=== PATIENT | male | born 2000 | race African-American/Black ===

== ENCOUNTER 2021-07-13 21:03 | Emergency (ER) | payer SELFPAY ==
--- NOTE | 2021-07-13 21:36 | EDM.PDOC ---
<Dionna Palencia R - Last Filed: 07/13/21 22:00> ED HPI GENERAL MEDICAL PROBLEM - General Chief Complaint: Chest Pain Stated Complaint: CHEST PAIN, SOB Time Seen by Provider: 07/13/21 21:15 Source of Information: Reports: Patient History Limitations: Reports: No Limitations - History of Present Illness INITIAL COMMENTS - FREE TEXT/NARRATIVE: Presents to the emergency room with a complaint of "coughing up blood". As I made inquiry, the patient stated he has had all kinds of symptoms for the last 2 weeks including chest pain, shortness of breath, coffee ground emesis x4, liquid stools today, shakiness. He also adds that he had no intention of coming in today but "my dad made me come in". He states he is otherwise healthy and has no chronic medical problems. He vapes nicotine and dips tobacco. No fevers, dysuria. Left Chest Pain Score (Numeric/FACES): 4 - Related Data Allergies Allergy/AdvReac Type Severity Reaction Status Date / Time No Known Allergies Allergy Verified 07/13/21 21:13 Home Meds: Home Meds . [No Known Home Meds] 07/13/21 [History] Past Medical History - Past Health History Medical/Surgical History: Denies Medical/Surgical History Social & Family History - Recreational Drug Use Recreational Drug Use: No ED ROS GENERAL - Review of Systems Review Of Systems: Comprehensive ROS is negative, except as noted in HPI. ED EXAM, GENERAL - Physical Exam Exam: See Below Exam Limited By: No Limitations General Appearance: Alert, No Apparent Distress, Other (visiting and joking) Ears: Normal External Exam Nose: Normal Inspection Throat/Mouth: Normal Inspection Head: Atraumatic, Normocephalic Neck: Normal Inspection Respiratory/Chest: No Respiratory Distress, Lungs Clear, Normal Breath Sounds Cardiovascular: Normal Peripheral Pulses, Regular Rate, Rhythm, No Edema, No Murmur GI/Abdominal: Normal Bowel Sounds, Soft, Tender (two spots only--one on the RUQ and LUQ are tender) Back Exam: Normal Inspection Extremities: Normal Inspection Neurological: Alert, Oriented Psychiatric: Normal Affect, Normal Mood Skin Exam: Warm, Dry, Intact, Normal Color, No Rash Lymphatic: No Adenopathy Course - Vital Signs Text/Narrative:: Case handed off to Dr. Ashley. Departure - Departure Disposition: Home, Self-Care 01 Clinical Impression: Hemoptysis, Nonspecific chest pain Instructions: Nonspecific Chest Pain, Adult, Hemoptysis Referrals: PCP,None [Primary Care Provider] - Forms: ED Department Discharge Additional Instructions: Your seen and evaluated in the ER today secondary to episodes of coughing up blood and chest pain. Your work-up in the emergency department was completely normal including normal labs, EKG, Covid and influenza tests. Your chest x-ray was also normal. Please make an appointment see your family doctor this week for reevaluation. The following information is given to patients seen in the emergency department who are being discharged to home. This information is to outline your options for follow-up care. We provide all patients seen in our emergency department with a follow-up referral. The need for follow-up, as well as the timing and circumstances, are variable depending upon the specifics of your emergency department visit. If you don't have a primary care physician on staff, we will provide you with a referral. We always advise you to contact your personal physician following an emergency department visit to inform them of the circumstance of the visit and for follow-up with them and/or the need for any referrals to a consulting specialist. The emergency department will also refer you to a specialist when appropriate. This referral assures that you have the opportunity for follow-up care with a specialist. All of these measure are taken in an effort to provide you with optimal care, which includes your follow-up. Under all circumstances we always encourage you to contact your private physician who remains a resource for coordinating your care. When calling for follow-up care, please make the office aware that this follow-up is from your recent emergency room visit. If for any reason you are refused follow-up, please contact the [facility] Department at and asked to speak to the emergency department charge nurse. [facility] [address] [place] [id number] [facility] [address] [place] [id number] Sepsis Event Note (ED) - Evaluation Sepsis Screening Result: No Definite Risk <Juan Ashley - Last Filed: 07/13/21 22:57> ED HPI GENERAL MEDICAL PROBLEM - History of Present Illness INITIAL COMMENTS - FREE TEXT/NARRATIVE: 10:55 PM 19-year-old gentleman who presents ER today secondary to coughing up blood, chest pain, shortness of breath, liquidy stool and shakiness. Patient's ER work-up is been unremarkable. Patient's labs are all within normal limits. Patient's troponin, EKG, Covid and influenza test have all been negative. EKG July 13, 2021 9:38 PM EKG: As interpreted by ER physician: Dion: Nonspecific ST-T wave abnormalities Normal axis No evidence of ST elevation OR Normal sinus rhythm heart rate of 80 Given normal labs in ER evaluation, I feel that the patient is stable for discharge to home and will not require any further emergent inpatient or ER evaluation. Patient will need to follow-up with the family doctor for further outpatient work-up of his symptoms. Reassessment at the time of disposition demonstrates that the patient is in no acute distress. The patient has remained stable throughout the entire ED visit and is without objective evidence for acute process requiring urgent intervention or hospitalization. The patient is stable for discharge, counseling is provided as documented above, discussed symptomatic treatment and specific conditions for return. I have spoken with the patient/caregiver and discussed todays findings, in addition to providing specific details for the plan of care. Questions are answered and there is agreement with the plan. ED ROS GENERAL - Review of Systems Review Of Systems: See Below Course - Vital Signs Last Recorded V/S: Last Vital Signs Temp 97.2 F 07/13/21 21:14 Pulse 81 07/13/21 21:14 Resp 16 07/13/21 21:14 BP 146/87 H 07/13/21 21:14 Pulse Ox 98 07/13/21 21:14 - Orders/Labs/Meds Labs: Laboratory Tests 07/13/21 07/13/21 07/13/21 Range/Units 21:37 21:37 21:53 WBC 6.90 (4.0-11.0) K/uL RBC 5.68 (4.50-5.90) M/uL Hgb 16.3 (13.0-17.0) g/dL Hct 46.2 (38.0-50.0) % MCV 81.3 (80.0-98.0) fL MCH 28.7 (27.0-32.0) pg MCHC 35.3 (31.0-37.0) g/dL RDW Std Deviation 37.9 (28.0-62.0) fl RDW Coeff of Sony 13 (11.0-15.0) % Plt Count 322 (150-400) K/uL MPV 8.60 (7.40-12.00) fL Neut % (Auto) 42.2 L (48.0-80.0) % Lymph % (Auto) 47.1 H (16.0-40.0) % [place] % (Auto) 7.7 (0.0-15.0) % Eos % (Auto) 2.9 (0.0-7.0) % Baso % (Auto) 0.1 (0.0-1.5) % Neut # (Auto) 2.9 (1.4-5.7) K/uL Lymph # (Auto) 3.3 H (0.6-2.4) K/uL [place] # (Auto) 0.5 (0.0-0.8) K/uL Eos # (Auto) 0.2 (0.0-0.7) K/uL Baso # (Auto) 0.0 (0.0-0.1) K/uL Nucleated RBC % 0.0 /100WBC Nucleated RBCs # 0 K/uL Sodium 144 (136-148) mmol/L Potassium 3.7 (3.5-5.1) mmol/L Chloride 105 (98-107) mmol/L Carbon Dioxide 23.7 (21.0-32.0) mmol/L BUN 10 (7.0-18.0) mg/dL Creatinine 1.1 (0.8-1.3) mg/dL Est Cr Clr Drug Dosing 125.90 mL/min Estimated GFR (MDRD) > 60.0 ml/min Glucose 114 H (74-106) mg/dL Calcium 8.9 (8.5-10.1) mg/dL Total Bilirubin 0.4 (0.2-1.0) mg/dL AST 10 L (15-37) IU/L ALT 20 (14-63) IU/L Alkaline Phosphatase 81 (46-116) U/L Troponin I < 0.050 (0.000-0.056) ng/mL Total Protein 8.1 (6.4-8.2) g/dL Albumin 4.4 (3.4-5.0) g/dL Globulin 3.7 (2.6-4.0) g/dL Albumin/Globulin Ratio 1.2 (0.9-1.6) Influenza Type A RNA NEGATIVE (NEGATIVE) Influenza Type B RNA NEGATIVE (NEGATIVE) SARS-CoV-2 RNA (KATIE) NEGATIVE (NEGATIVE) Departure - Departure Time of Disposition: 22:56 Condition: Good Sepsis Event Note (ED) - Focused Exam Vital Signs: Vital Signs Temp Pulse Resp BP Pulse Ox 07/13/21 21:14 97.2 F 81 16 146/87 H 98
--- NOTE | 2021-07-13 22:01 | CR ---
Indication: Chest pain for 2 weeks. Cough. Technique: Chest 2 views Comparison: None Findings: Cardiomediastinal silhouette is unremarkable. No focal lung consolidation, pleural effusion or pneumothorax. Bones are unremarkable. Impression: No acute cardiopulmonary abnormality. Dictated by Td Turner MD @ 07/13/2021 9:59:51 PM (Electronically Signed)
[2021-07-13 22:16] LABS: BLOOD UREA NITROGEN,BUN 10 mg/dL (7.0-18.0); CARBON DIOXIDE,CO2 23.7 mmol/L (21.0-32.0); CHLORIDE,CL 105 mmol/L (98-107); GLUCOSE RANDOM 114 mg/dL (74-106); POTASSIUM,K 3.7 mmol/L (3.5-5.1); SODIUM,NA 144 mmol/L (136-148)
[2021-07-13 22:40] LABS: CORONAVIRUS COVID-19 NAA NEGATIVE (NEGATIVE); INFLUENZA A NAA NEGATIVE (NEGATIVE); INFLUENZA B NAA NEGATIVE (NEGATIVE)
== END 2021-07-13 23:07 | disposition home or self-care (01) ==
LOC: MW.ED 21:03
DX: R04.2 Hemoptysis (principal); R07.9 Chest pain, unspecified; Z20.822 Contact with and (suspected) exposure to COVID-19
CPT/HCPCS: 0240U; 36415; 71046; 80053; 84484; 85025; 93005; 99285